=== PATIENT | female | born 1995 | race American Indian/Alaskan Native ===

== ENCOUNTER 2017-08-21 01:55 | Emergency (ER) | payer SELFPAY ==
[2017-08-21 04:24] LABS: Basophils % (Auto) 0.2 % (0.0-1.8); Eosinophils % (Auto) 0.1 % (0.0-4.3); Mean Corpuscular HGB Conc 30 % (30-34); Platelet Count 524 K/mm3 (140-440); Red Blood Count 5.21 M/mm3 (3.65-5.03); Red Cell Distribution Width 18.5 % (13.2-15.2); White Blood Count 12.4 K/mm3 (4.5-11.0)
[2017-08-21 04:29] LABS: Hematocrit 32.4 % (30.3-42.9); Hemoglobin 9.8 gm/dl (10.1-14.3); Mean Corpuscular Hemoglobin 19 pg (28-32); Mean Corpuscular Volume 62 fl (79-97)
[2017-08-21 04:47] LABS: Alanine Aminotransferase 11 units/L (7-56); Albumin 4.7 g/dL (3.9-5); Albumin/Globulin Ratio 1.1 %; Alkaline Phosphatase 81 units/L (35-129); Anion Gap 22 mmol/L; BUN/Creatinine Ratio 13; Blood Urea Nitrogen 12 mg/dL (7-17); Calcium 9.9 mg/dL (8.4-10.2); Carbon Dioxide 24 mmol/L (22-30); Chloride 92.7 mmol/L (98-107); Glucose 113 mg/dL (65-100); Lipase 18 units/L (13-60); Potassium 3.5 mmol/L (3.6-5.0); Sodium 135 mmol/L (137-145)
[2017-08-21 05:01] LABS: Bacteria,Urine 1+ /HPF (Negative); Bilirubin,Urine SM (Negative); Blood,Urine LG (Negative); Ketones,Urine NEG (Negative); Leukocyte Esterase,Urine TR (Negative); Mucus,Urine 3+ /HPF; Nitrite,Urine NEG (Negative); Urobilinogen,Urine < 2.0 mg/dL (<2.0)
[2017-08-21] MEDS ORDERED: ZOFRAN IV ONE (06:12)
[2017-08-21] MEDS ORDERED: MORPHINE IV ONE (06:12)
[2017-08-21] MEDS ORDERED: NACL 0.9% 1000 ML 1,000 ML IV ONE (06:12)
--- NOTE | 2017-08-21 06:42 | Emergency Department Report ---
ED Abdominal Pain HPI - General Chief Complaint: Abdominal Pain Stated Complaint: ABD PAIN Time Seen by Provider: 08/21/17 06:05 Source: patient Mode of arrival: Ambulatory Limitations: No Limitations - History of Present Illness Initial Comments: Patient is 22 years old female was no significant past medical history presented today complaining of 3 day history of abdominal pain, crampy in nature constant associated with nausea, vomiting and bloody diarrhea. Patient also reported that she's been having chills. Patient denied any chest pain or shortness of breath. MD Complaint: abdominal pain -: days(s) Location: diffuse Radiation: none Migration to: no migration Severity: moderate Severity scale (0 -10): 6 Quality: cramping Consistency: constant Improves With: nothing Worsens With: nothing Associated Symptoms: nausea, vomiting, diarrhea, fever, chills - Related Data Allergies Allergy/AdvReac Type Severity Reaction Status Date / Time shrimp Allergy Anaphylaxis Verified 08/21/17 03:52 ED Review of Systems ROS: Stated complaint: ABD PAIN Other details as noted in HPI Comment: All other systems reviewed and negative Constitutional: chills. denies: fever Respiratory: denies: cough, shortness of breath Cardiovascular: palpitations. denies: chest pain Gastrointestinal: abdominal pain, nausea, vomiting, diarrhea, hematochezia. denies: hematemesis, melena Genitourinary: denies: urgency, dysuria, frequency, hematuria Neurological: weakness (generalized). denies: headache, numbness, paresthesias , confusion, abnormal gait, vertigo ED Past Medical Hx - Past Medical History Previous Medical History?: No - Social History Smoking Status: Never Smoker ED Physical Exam - General Limitations: No Limitations General appearance: alert, in no apparent distress - Head Head exam: Present: atraumatic, normocephalic, normal inspection - Eye Eye exam: Present: normal appearance - ENT ENT exam: Present: normal exam, mucous membranes dry - Neck Neck exam: Present: normal inspection, full ROM. Absent: tenderness, meningismus, lymphadenopathy, thyromegaly - Respiratory Respiratory exam: Present: normal lung sounds bilaterally. Absent: respiratory distress, wheezes, rales, rhonchi, stridor, chest wall tenderness, accessory muscle use, decreased breath sounds - Cardiovascular Cardiovascular Exam: Present: tachycardia. Absent: systolic murmur, diastolic murmur - GI/Abdominal GI/Abdominal exam: Present: soft, tenderness (diffuse), normal bowel sounds. Absent: distended, guarding, rebound, rigid, diminished bowel sounds, organomegaly, mass, bruit, pulsatile mass, hernia - Extremities Exam Extremities exam: Present: normal inspection, full ROM, normal capillary refill. Absent: pedal edema - Back Exam Back exam: Present: normal inspection. Absent: CVA tenderness (R), CVA tenderness (L), muscle spasm - Neurological Exam Neurological exam: Present: alert, oriented X3, CN II-XII intact, normal gait, reflexes normal. Absent: motor sensory deficit - Skin Skin exam: Present: warm, dry, intact ED Course Vital Signs 08/21/17 08/21/17 08/21/17 02:19 03:53 04:25 Temperature 98.1 F 98.1 F Pulse Rate 107 H Respiratory 107 H 20 Rate Blood Pressure 129/74 129/74 Blood Pressure [Left] O2 Sat by Pulse 100 100 Oximetry 08/21/17 08/21/17 08/21/17 04:30 04:33 04:34 Temperature 98.3 F Pulse Rate 97 H Respiratory 16 16 Rate Blood Pressure 114/79 Blood Pressure 126/79 [Left] O2 Sat by Pulse 98 99 99 Oximetry 08/21/17 08/21/17 08/21/17 04:45 05:00 06:00 Temperature Pulse Rate Respiratory Rate Blood Pressure 122/82 126/83 124/75 Blood Pressure [Left] O2 Sat by Pulse 98 Oximetry 08/21/17 08/21/17 06:40 07:00 Temperature Pulse Rate Respiratory 16 Rate Blood Pressure 115/71 Blood Pressure [Left] O2 Sat by Pulse 92 Oximetry - Reevaluation(s) Reevaluation #1: 08/21/17 08:46 Patient stated that she is feeling much better, denied any nausea or vomiting now stated that her pain is much better. ED Medical Decision Making - Lab Data Result diagrams: 08/21/17 04:03 08/21/17 04:03 - Radiology Data Radiology results: report reviewed Referring Physician: MICHAEL COHEN Patient Name: FREDDY ZAMBRANO Date of : 1995 Sex: Female Report Date: 2017-08-21 Report Status: Finalized Findings [address] [place] [address] Cat Scan Report Signed Patient: FREDDY ZAMBRANO MR#: [id number] : 1995 Acct:[id number] Age/Sex: 22 / F ADM Date: 08/21/17 Loc: ED Attending Dr: Ordering Physician: MICHAEL COHEN Date of Service: 08/21/17 Procedure(s): CT abdomen pelvis w con Accession Number(s): [id number] cc: MICHAEL COHEN FINAL REPORT PROCEDURE: CT ABDOMEN PELVIS W CON TECHNIQUE: Computerized axial tomography of the abdomen and pelvis was performed after the IV injection of iodinated nonionic contrast. HISTORY: abdominal pain COMPARISON: No prior studies are available for comparison. FINDINGS: Visualized lower thorax: No significant abnormality. Liver: Normal size and attenuation. Spleen: Normal size and attenuation. Gallbladder and biliary system: Normal. Pancreas: Normal. Adrenals: Normal. Kidneys: Normal. GI tract: There is mucosal thickening of the stomach possibly indicating gastritis. The small bowel is within normal limits. There is diffuse mucosal thickening of the colon indicating colitis. This could be infectious or inflammatory. There is no evidence of ischemic colitis or diverticulitis. The appendix is within normal limits.. Lymph nodes and mesentery: There is mesenteric adenopathy which could be reactive.. Vasculature: Normal. Bladder: Normal. Reproductive organs: The uterus is intact. There is no ovarian abnormality.. Peritoneum: There is no ascites or free air. There is no peritoneal abscess.. Musculoskeletal structures: No significant abnormality. Other: None. IMPRESSION: There is mucosal thickening of the stomach possibly indicating gastritis. The small bowel is within normal limits. There is diffuse mucosal thickening of the colon indicating colitis. This could be infectious or inflammatory. There is no evidence of ischemic colitis or diverticulitis. The appendix is within normal limits.. There is mesenteric adenopathy which could be reactive.. There is no ascites or free air. There is no peritoneal abscess.. Transcribed By: CO Dictated By: EVELYNE BILLINGSLEY MD Electronically Authenticated By: EVELYNE BILLINGSLEY MD Signed Date/Time: 08/21/17401 DD/ 1 TD/TT: 12/17/17 0402 Critical care attestation.: If time is entered above; I have spent that time in minutes in the direct care of this critically ill patient, excluding procedure time. ED Disposition Clinical Impression: Abdominal pain, Acute colitis, Gastritis Disposition: TO HOME OR SELFCARE Is pt being admited?: No Condition: Stable Instructions: Abdominal Pain (ED), Infectious Colitis (ED), Gastritis (ED) Additional Instructions: Please return to the ER or closest ER if symptoms are not improving or if you develop new symptoms. Referrals: PRIMARY CARE, [Primary Care Provider] - 3-5 Days
[2017-08-21 07:13] VITALS: BP 115/71
--- NOTE | 2017-08-21 08:05 | Cat Scan Report ---
FINAL REPORT PROCEDURE: CT ABDOMEN PELVIS W CON TECHNIQUE: Computerized axial tomography of the abdomen and pelvis was performed after the IV injection of iodinated nonionic contrast. HISTORY: abdominal pain COMPARISON: No prior studies are available for comparison. FINDINGS: Visualized lower thorax: No significant abnormality. Liver: Normal size and attenuation. Spleen: Normal size and attenuation. Gallbladder and biliary system: Normal. Pancreas: Normal. Adrenals: Normal. Kidneys: Normal. GI tract: There is mucosal thickening of the stomach possibly indicating gastritis. The small bowel is within normal limits. There is diffuse mucosal thickening of the colon indicating colitis. This could be infectious or inflammatory. There is no evidence of ischemic colitis or diverticulitis. The appendix is within normal limits.. Lymph nodes and mesentery: There is mesenteric adenopathy which could be reactive.. Vasculature: Normal. Bladder: Normal. Reproductive organs: The uterus is intact. There is no ovarian abnormality.. Peritoneum: There is no ascites or free air. There is no peritoneal abscess.. Musculoskeletal structures: No significant abnormality. Other: None. IMPRESSION: There is mucosal thickening of the stomach possibly indicating gastritis. The small bowel is within normal limits. There is diffuse mucosal thickening of the colon indicating colitis. This could be infectious or inflammatory. There is no evidence of ischemic colitis or diverticulitis. The appendix is within normal limits.. There is mesenteric adenopathy which could be reactive.. There is no ascites or free air. There is no peritoneal abscess..
[2017-08-21] MEDS ORDERED: ZOSYN/NS 4.5GM/100ML 4.5 GM/100 ML VIAL IV ONE (08:12)
== END 2017-08-21 09:36 | disposition home or self-care (01) ==
LOC: ED 01:55
DX: K52.9 Noninfective gastroenteritis and colitis, unspecified (principal); K29.70 Gastritis, unspecified, without bleeding; Z91.013 Allergy to seafood
CPT/HCPCS: 36415; 74177; 80053; 81001; 83690; 84703; 85025; 96361; 96365; 96375; 99284; J2270; J2405; J2543; J7030; Q9967

== ENCOUNTER 2017-08-31 08:31 | Emergency (ER) | payer OTHER ==
[2017-08-31 08:45] VITALS: BP 116/44
[2017-08-31 09:46] LABS: Bacteria,Urine 2+ /HPF (Negative); Bilirubin,Urine NEG (Negative); Blood,Urine NEG (Negative); Ketones,Urine NEG (Negative); Leukocyte Esterase,Urine SM (Negative); Mucus,Urine 2+ /HPF; Nitrite,Urine NEG (Negative); Urobilinogen,Urine < 2.0 mg/dL (<2.0)
[2017-08-31 10:02] LABS: Basophils % (Auto) 0.4 % (0.0-1.8); Eosinophils % (Auto) 2.5 % (0.0-4.3); Hematocrit 28.4 % (30.3-42.9); Hemoglobin 8.6 gm/dl (10.1-14.3); Mean Corpuscular HGB Conc 30 % (30-34); Platelet Count 589 K/mm3 (140-440); Red Blood Count 4.49 M/mm3 (3.65-5.03); Red Cell Distribution Width 19.7 % (13.2-15.2); White Blood Count 8.4 K/mm3 (4.5-11.0)
[2017-08-31 10:16] LABS: Mean Corpuscular Hemoglobin 19 pg (28-32); Mean Corpuscular Volume 63 fl (79-97)
[2017-08-31 10:29] LABS: Alanine Aminotransferase 13 units/L (7-56); Albumin/Globulin Ratio 1.1 %; Alkaline Phosphatase 61 units/L (35-129); Anion Gap 20 mmol/L; BUN/Creatinine Ratio 16; Blood Urea Nitrogen 14 mg/dL (7-17); Calcium 9.4 mg/dL (8.4-10.2); Carbon Dioxide 24 mmol/L (22-30); Chloride 92.9 mmol/L (98-107); Glucose 98 mg/dL (65-100); Lipase 46 units/L (13-60); Potassium 3.6 mmol/L (3.6-5.0); Sodium 133 mmol/L (137-145); Total Protein 7.7 g/dL (6.3-8.2)
== END 2017-08-31 16:46 | disposition left against medical advice (07) ==
LOC: ED 08:31
DX: T78.40XA Allergy, unspecified, initial encounter (principal); Z53.21 Procedure and treatment not carried out due to patient leaving prior to being seen by health care provider; X58.XXXA Exposure to other specified factors, initial encounter; Y93.89 Activity, other specified; Y99.8 Other external cause status; Y92.89 Other specified places as the place of occurrence of the external cause
CPT/HCPCS: 36415; 80053; 81001; 83690; 84703; 85025